=== PATIENT | male | born 1985 | race Caucasian/White ===

== ENCOUNTER 2024-09-27 15:23 | Emergency (ER) | payer OTHER, SELFPAY ==
--- NOTE | ~2024-09-27 | CT_ITS ---
EXAMINATION: CTA head and neck with and without contrast CLINICAL INFORMATION: blurry vision, dizziness, extrem weakness COMPARISON: None available. TECHNIQUE: Test bolus sequences followed by intravenous administration of 70 mL of Omnipaque 350 contrast. Helical imaging was performed in the axial plane from the skull vertex to the thoracic inlet. Delayed postcontrast imaging of the head was also performed. The data was processed at the laboratory technologist workstation for generation of MIP sequences. Angled MIPs and volume rendered reformatted images were also generated at an offline 3D workstation. Stenoses are assessed in accordance with NASCET criteria unless otherwise indicated. This CT examination was performed using dose optimization techniques as appropriate, variously including the following: *Automated exposure control *Adjustment of mA and/or kV according to patient size (this includes techniques or standardized protocols for targeted exams where dose is matched to indication/reason for exam; i.e. extremities or head) *Use of iterative reconstruction technique DLP: 2422 mGy-cm FINDINGS: BRAIN: No acute intracranial hemorrhage or infarct. The elias-white matter differentiation is preserved. No midline shift or hydrocephalus. No acute extra-axial fluid collections. The osseous structures are unremarkable. No orbital pathology. The paranasal sinuses and mastoid air cells are clear. CTA NECK: Three-vessel aortic arch. The innominate and bilateral subclavian arteries are patent. The origins and cervical segments of the common carotid arteries as well as the common carotid artery bifurcations are patent bilaterally. The cervical segments of the internal carotid arteries are also patent bilaterally. The origins and cervical segments of the vertebral arteries are patent bilaterally. No hemodynamically significant stenosis, dissection, or aneurysm. The visualized branches of the external carotid arteries are unremarkable. CTA HEAD: Anterior circulation: The petrous, cavernous, and supraclinoid segments of the internal carotid arteries are patent bilaterally. The major branches of the anterior and middle cerebral arteries as well as anterior communicating artery complex are patent. No large vessel occlusion, saccular aneurysm, or dissection. Posterior circulation: The intracranial vertebral arteries are patent bilaterally. The basilar artery is normal in course and caliber. The posterior cerebral and superior cerebellar arteries arise normally from the basilar summit. No aneurysm. On delayed imaging, the venous structures demonstrate normal contrast opacification. No filling defect. No abnormal intracranial enhancement. Soft tissues: No suspicious neck mass or cervical adenopathy. Lungs: Clear. Bones: No acute osseous abnormality. No lytic or blastic osseous lesions. Degenerative changes of the visualized spine. CT/CT angio head neck IMPRESSION: CT head demonstrates no acute intracranial hemorrhage or infarct. CTA head demonstrates no large vessel occlusion, saccular aneurysm, or dissection. CTA neck demonstrates no hemodynamically significant stenosis, dissection, or aneurysm. Electronically signed by: Carl Robertson MD 09/27/2024 05:16 PM [facility] [place]
[2024-09-27 15:34] VITALS: BP 137/88; PULSE 71; RESP 18; TEMP 36.6; O2SAT 100; BMI 29.1
--- NOTE | 2024-09-27 15:42 | ECG_ITS ---
Test Reason : DIZZINESS Blood Pressure : / mmHG Vent. Rate : 062 BPM Atrial Rate : 062 BPM P-R Int : 190 ms QRS Dur : 090 ms QT Int : 384 ms P-R-T Axes : 067 053 040 degrees QTc Int : 389 ms Normal sinus rhythm Normal ECG No previous ECGs available Referred By: Generic ED Physician Electronically Signed By:KENNY RANGEL
[2024-09-27 15:46] LABS: MANUAL DIFF FLAG NO
[2024-09-27 16:04] LABS: Basophils Absolute Auto 0.1 X10*3/uL (0.0-0.2); Basophils Percent Auto 0.9 % (0-2); Eosinophils Absolute Auto 0.1 X10*3/uL (0.0-0.4); Eosinophils Percent Auto 1.1 % (0-4); Hemoglobin 15.2 g/dl (14.0-18.0); Imm Gran Abs Auto 0.01 X10*3/uL (0.00-0.03); Imm Gran Pct Auto 0.2 % (0.0-0.4); Lymphocytes Absolute Auto 2.1 X10*3/uL (1.2-4.9); Lymphocytes Percent Auto 37.2 % (20-40); Mean Corpuscular HGB Conc 33.8 g/dl (31.0-36.0); Mean Corpuscular Hemoglobin 29.1 pg (27.0-33.0); Mean Platelet Volume 9.1 fL (9.4-12.4); Monocytes Absolute Auto 0.6 X10*3/uL (0.1-1.2); Monocytes Percent Auto 10.8 % (2-11); Neutrophils Absolute Auto 2.8 x10*3/uL (2.0-8.3); Neutrophils Percent Auto 49.8 % (45-73); Platelet Count 216 X10*3/uL (160-400); Red Blood Count 5.23 X10*6/uL (4.60-5.80); Red Cell Distribution Width 12.5 % (11.0-16.0); White Blood Count 5.7 X10*3/uL (4.8-10.8)
[2024-09-27 16:12] LABS: Alanine Aminotransferase 64 U/L (0-40); Albumin Level 4.6 g/dL (3.5-5.0); Alkaline Phosphatase 52 U/L (39-117); Anion Gap 15 (12-20); Aspartate Amino Transferase 37 U/L (5-37); Bilirubin Total 0.4 mg/dL (0.0-1.0); Blood Urea Nitrogen 18 mg/dL (9-16); Calcium 9.4 mg/dL (8.4-10.2); Carbon Dioxide 25 mmol/L (22-29); Chloride 109 mmol/L (96-108); Creatinine Clr Calc Pharmacy 118.3; Estimated Glomerular Filt Rate > 60; Glucose Random 91 mg/dL (60-115); Potassium 3.9 mmol/L (3.3-5.1); Sodium 145 mmol/L (135-145)
--- NOTE | 2024-09-27 16:16 | ED_ITS ---
HPI - General Adult General Chief complaint: Dizziness Stated complaint: lighthead dizzy weakness in hands Time Seen by Provider: 09/27/24 16:00 Source: patient and family Mode of arrival: ambulatory Limitations: no limitations History of Present Illness ED Provider: Dr. Kinga Jarquin HPI narrative: Patient comes to the emergency room accompanied by his . Patient complaining of intermittent dizziness. Patient states that he has had BPPV intermittently for a bit over a year. However, episodes are spaced out for about 4-6 months. However, over the last few weeks and especially this last week, patient has had blurred vision, sensation that his vision is jumping, sometimes bilaterally, sometimes a single eye, intermittent headaches, bilateral arms numbness tingling and weakness. Related Data Allergies Allergy/AdvReac Type Severity Reaction Status Date / Time No Known Allergies Allergy Verified 09/27/24 15:36 [facility] Social History Social History Advance Directives: No Advance Directives Information Provided: No Physical Exam ED Vital Signs: Vital Signs - 24 hr 09/27/24 15:34 09/27/24 16:43 09/27/24 16:44 Temperature 97.9 F Pulse Rate 71 74 76 Respiratory Rate 18 Blood Pressure 137/88 144/86 H 144/88 H Pulse Oximetry 100 Oxygen Delivery Method Room Air 09/27/24 16:47 09/27/24 16:50 Temperature 98.6 F Pulse Rate 76 76 Respiratory Rate 12 Blood Pressure 140/96 H 140/96 H Pulse Oximetry 100 Oxygen Delivery Method Room Air BMI result Body Mass Index 29.1 Medications Administered Discontinued Medications Generic Name Dose Route Start Last Admin Trade Name Freq PRN Reason Stop Dose Admin Iohexol 70 ml 09/27/24 16:38 09/27/24 16:39 Iohexol 350 Mg/Ml 100 Ml Infus..Btl IV 09/27/24 16:39 70 ml ONCE ONE Administration Medical Decision Making Medical Decision Making [facility] Narrative: My interpretation of labs, no significant abnormality in CBC and chemistry -patient acuity test of the right eye: 20/ 30, left eye 20/20, bilateral 20/ 40 -orthostatic vitals negative, no drop in blood pressure. However, patient did feel a bit lightheaded. IV fluids offered, patient prefers to drink p.o. 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 09/27/24 15:42 09/27/24 15:42 Labs: Lab Results 09/27/24 Range/Units 15:42 WBC 5.7 (4.8-10.8) X10*3/uL RBC 5.23 (4.60-5.80) X10*6/uL Hgb 15.2 (14.0-18.0) g/dl Hct 45.0 (42.0-52.0) % MCV 86.0 (80.0-98.0) fL MCH 29.1 (27.0-33.0) pg MCHC 33.8 (31.0-36.0) g/dl RDW 12.5 (11.0-16.0) % Plt Count 216 (160-400) X10*3/uL MPV 9.1 L (9.4-12.4) fL Immature Gran % (Auto) 0.2 (0.0-0.4) % Neut % (Auto) 49.8 (45-73) % Lymph % (Auto) 37.2 (20-40) % [place] % (Auto) 10.8 (2-11) % Eos % (Auto) 1.1 (0-4) % Baso % (Auto) 0.9 (0-2) % Lymph # (Auto) 2.1 (1.2-4.9) X10*3/uL [place] # (Auto) 0.6 (0.1-1.2) X10*3/uL Eos # (Auto) 0.1 (0.0-0.4) X10*3/uL Baso # (Auto) 0.1 (0.0-0.2) X10*3/uL Abs Immat Gran (auto) 0.01 (0.00-0.03) X10*3/uL Absolute Neuts (auto) 2.8 (2.0-8.3) x10*3/uL Absolute Nucleated RBC 0.000 (0.0-0.012) X10*3/uL Nucleated RBC % (auto) 0.0 (0.0-0.2) /100WBC Sodium 145 (135-145) mmol/L Potassium 3.9 (3.3-5.1) mmol/L Chloride 109 H (96-108) mmol/L Carbon Dioxide 25 (22-29) mmol/L Anion Gap 15 (12-20) BUN 18 H (9-16) mg/dL Creatinine 1.12 (0.5-1.4) mg/dL Estim Creat Clear Calc 118.3 Estimated GFR > 60 Random Glucose 91 (60-115) mg/dL Calcium 9.4 (8.4-10.2) mg/dL Total Bilirubin 0.4 (0.0-1.0) mg/dL AST 37 (5-37) U/L ALT 64 H (0-40) U/L Alkaline Phosphatase 52 (39-117) U/L Troponin I High Sens < 2.7 (<3.5-35.0) ng/L Total Protein 7.0 (6.5-8.0) g/dL Albumin 4.6 (3.5-5.0) g/dL TSH 1.09 (0.32-4.0) uIU/mL Independent Interpretation I performed an independent interpretation of an: CT Scan Radiology Impression Discussion of test interpretation with radiology: I have reviewed the radiologist's reading. Radiologist Impression: BRAIN: No acute intracranial hemorrhage or infarct. The elias-white matter differentiation is preserved. No midline shift or hydrocephalus. No acute extra-axial fluid collections. The osseous structures are unremarkable. No orbital pathology. The paranasal sinuses and mastoid air cells are clear. CTA NECK: Three-vessel aortic arch. The innominate and bilateral subclavian arteries are patent. The origins and cervical segments of the common carotid arteries as well as the common carotid artery bifurcations are patent bilaterally. The cervical segments of the internal carotid arteries are also patent bilaterally. The origins and cervical segments of the vertebral arteries are patent bilaterally. No hemodynamically significant stenosis, dissection, or aneurysm. The visualized branches of the external carotid arteries are unremarkable. CTA HEAD: Anterior circulation: The petrous, cavernous, and supraclinoid segments of the internal carotid arteries are patent bilaterally. The major branches of the anterior and middle cerebral arteries as well as anterior communicating artery complex are patent. No large vessel occlusion, saccular aneurysm, or dissection. Posterior circulation: The intracranial vertebral arteries are patent bilaterally. The basilar artery is normal in course and caliber. The posterior cerebral and superior cerebellar arteries arise normally from the basilar summit. No aneurysm. On delayed imaging, the venous structures demonstrate normal contrast opacification. No filling defect. No abnormal intracranial enhancement. Soft tissues: No suspicious neck mass or cervical adenopathy. Lungs: Clear. Bones: No acute osseous abnormality. No lytic or blastic osseous lesions. Degenerative changes of the visualized spine. CT/CT angio head neck IMPRESSION: CT head demonstrates no acute intracranial hemorrhage or infarct. CTA head demonstrates no large vessel occlusion, saccular aneurysm, or dissection. CTA neck demonstrates no hemodynamically significant stenosis, dissection, or aneurysm. Independent Historian Clinical information obtained from an independent historian. History obtained from or confirmed by: Spouse Critical Care Time Critical Care Time Critical Care Time: Yes Total Critical Care Time: 30 Attestation: I have personally provided critical care time. Time includes review of lab data, radiology results, discussion with consultants, and monitoring for potential decompensation. Intervention performed as documented. Discharge Plan Discharge Clinical Impression: Dizziness, Vision changes, Paresthesias Patient Disposition: Home, Self-Care Instructions: Dizziness (ED), Paresthesia (ED), Blurred Vision (ED) Additional Instructions: Please follow-up with your primary care physician tomorrow. If you have any worsening or new symptoms, please return to the emergency room or call 911 Referrals: Fabiano Dimas MD [Physician] - 10/02/24 Abad Davis MD [Physician] - 10/02/24 Robert Reyes [Physician] - 10/02/24 Print Language: Swedish
[2024-09-27 16:30] LABS: Troponin-I High Sensitivity < 2.7 ng/L (<3.5-35.0)
[2024-09-27 16:35] LABS: TSH reflex Free T4 1.09 uIU/mL (0.32-4.0)
[2024-09-27] MEDS: iohexoL 350 MG/ML 100 ML INFUS..BTL 70 ML IV (16:39)
[2024-09-27 16:43] VITALS: BP 144/86; PULSE 74
[2024-09-27 16:44] VITALS: BP 144/88; PULSE 76
[2024-09-27 16:47] VITALS: BP 140/96; PULSE 76
[2024-09-27 16:50] VITALS: BP 140/96; PULSE 76; RESP 12; TEMP 37; O2SAT 100
[2024-09-27 18:09] VITALS: BP 140/96; PULSE 76; RESP 16; TEMP 37; O2SAT 100
== END 2024-09-27 18:09 | disposition home or self-care (01) ==
PROVIDERS: Emergency Provider Emergency Medicine
DX: R42 Dizziness and giddiness (principal); H53.8 Other visual disturbances; R20.2 Paresthesia of skin
CPT/HCPCS: 36415; 70496; 70498; 80053; 84443; 84484; 85025; 93005; 99284; Q9967

== ENCOUNTER → 2024-09-27 15:42 | Outpatient (BNV) | payer OTHER, SELFPAY | PROVIDERS: Emergency Provider Emergency Medicine; Visit Provider Internal Medicine | DX: R42 Dizziness and giddiness (principal) | CPT/HCPCS: 93010 ==